=== PATIENT | male | born 1950 | race American Indian/Alaskan Native ===

== ENCOUNTER 2017-10-06 02:29 | Emergency (ER) | payer MEDICARE ==
[2017-10-06 02:55] VITALS: BP 134/78
--- NOTE | 2017-10-06 05:12 | Emergency Department Report ---
ED Animal Bite HPI - General Chief Complaint: Animal Bite Stated Complaint: ANIMAL BITE Time Seen by Provider: 10/06/17 05:06 Source: patient Mode of arrival: Ambulatory Limitations: No Limitations - History of Present Illness Initial Comments: 67-year-old male comes in status post bitten by his own dog on his left upper arm and left lower arm and behind his right knee. Patient reports that the dog is up-to-date on all his vaccines. Patient reports that he is up- to-date in all his vaccines. Patient reports no past medical history of any significance. He currently has no known drug allergies takes no medication at home. MD Complaint: animal bite - Related Data Previous Rx's Medication Instructions Recorded Last Taken Type Amoxicillin/K Clav Tab [Augmentin 1 tab PO Q12HR #10 tab 10/06/17 Unknown Rx 875 mg] Allergies Allergy/AdvReac Type Severity Reaction Status Date / Time No Known Allergies Allergy Unverified 10/06/17 02:55 ED Review of Systems ROS: Stated complaint: ANIMAL BITE Other details as noted in HPI Constitutional: denies: chills, fever Eyes: denies: eye pain, eye discharge, vision change ENT: denies: ear pain, throat pain Respiratory: denies: cough, shortness of breath, wheezing Cardiovascular: denies: chest pain, palpitations Endocrine: no symptoms reported Gastrointestinal: denies: abdominal pain, nausea, diarrhea Genitourinary: denies: urgency, dysuria Musculoskeletal: denies: back pain, joint swelling, arthralgia Skin: other (multiple bite on left upper arm right posterior knee). denies: rash, lesions Neurological: denies: headache, weakness, paresthesias Psychiatric: denies: anxiety, depression Hematological/Lymphatic: denies: easy bleeding, easy bruising ED Past Medical Hx - Past Medical History Additional medical history: High Cholesterol - Surgical History Additional Surgical History: Right ear repair - Social History Smoking Status: Never Smoker Substance Use Type: None - Medications Home Medications: Home Medications Medication Instructions Recorded Confirmed Last Taken Type Amoxicillin/K Clav Tab [Augmentin 1 tab PO Q12HR #10 tab 10/06/17 Unknown Rx 875 mg] ED Physical Exam - General Limitations: No Limitations General appearance: alert, in no apparent distress - Head Head exam: Present: atraumatic, normocephalic - Eye Eye exam: Present: normal appearance - ENT ENT exam: Present: mucous membranes moist - Neck Neck exam: Present: normal inspection - Respiratory Respiratory exam: Present: normal lung sounds bilaterally. Absent: respiratory distress - Cardiovascular Cardiovascular Exam: Present: regular rate, normal rhythm. Absent: systolic murmur, diastolic murmur, rubs, gallop - GI/Abdominal GI/Abdominal exam: Present: soft, normal bowel sounds - Rectal Rectal exam: Present: deferred - Extremities Exam Extremities exam: Present: normal inspection - Back Exam Back exam: Present: normal inspection - Neurological Exam Neurological exam: Present: alert, oriented X3 - Psychiatric Psychiatric exam: Present: normal affect, normal mood - Skin Skin exam: Present: warm, dry, intact, normal color, other (4 cm laceration to the left forearm distal, 1 cm lac to the left upper arm and1 cm lac to the medial arm, one punctured lac to the right posterior knee. Actively bleeding). Absent: rash ED Course Vital Signs 10/06/17 02:49 Temperature 97.6 F Pulse Rate 78 Respiratory 16 Rate Blood Pressure 134/78 O2 Sat by Pulse 100 Oximetry - Laceration /Wound Repair Left Arm Wound Location: upper extremity Wound's Depth, Shape: into muscle Wound Explored: clean Betadine Prep?: Yes Anesthesia: 1% Lidocaine Wound Debrided: minimal Suture Size/Type: 3:0 Number of Sutures: 2 (2 sutures to the left wrist since the wound was gaping only open. Suture place wide to prevent any infection.) Sterile Dressing Applied?: Yes Progress: Patient tolerated procedure well Critical care attestation.: If time is entered above; I have spent that time in minutes in the direct care of this critically ill patient, excluding procedure time. ED Disposition Clinical Impression: Dog bite of extremity Disposition: DC-01 TO HOME OR SELFCARE Is pt being admited?: No Does the pt Need Aspirin: No Condition: Stable Additional Instructions: Please complete antibiotics as prescribed. Please apply clean bandage 2 wounds daily. You can use Neosporin to the wounds. Please return to the hospital if any signs of infection such as purulent discharge fever to the wounds internal fever with nausea and vomiting. I recommended to follow-up in 5-7 days to have those 3 sutures removed. Need to have follow-up on wounds. Prescriptions: Amoxicillin/K Clav Tab [Augmentin 875 mg] 1 tab PO Q12HR #10 tab Referrals: SOLEDAD PAYTON MD [Primary Care Provider] - 3-5 Days Forms: Work/School Release Form(ED)
[2017-10-06] MEDS ORDERED: XYLOCAINE 2% INFILTRATI ONE (05:22)
== END 2017-10-06 06:00 | disposition home or self-care (01) ==
LOC: ED 02:29
DX: S51.852A Open bite of left forearm, initial encounter (principal); S81.052A Open bite, left knee, initial encounter; E78.00 Pure hypercholesterolemia, unspecified; W54.0XXA Bitten by dog, initial encounter; Y93.89 Activity, other specified; Y99.8 Other external cause status; Y92.89 Other specified places as the place of occurrence of the external cause
CPT/HCPCS: 99282